=== PATIENT | male | born 1965 | race Caucasian/White ===

== ENCOUNTER 2016-11-09 13:55 | Emergency (ER) | payer OTHER ==
--- NOTE | 2016-11-09 15:01 | EDPHY ---
H & P Time Seen by Provider: 11/09/16 15:01 HPI/ROS: CHIEF COMPLAINT: Severe depression HISTORY OF PRESENT ILLNESS: This 51-year-old man presents with worsening severe depression for the past several weeks. His brother of liver disease 3 years ago and has been having some intermittent severe depression since then. 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 He has intermittent suicidal ideation but no plan and states that I'm not even remotely going to hurt myself. Associated with poor sleep and some increased alcohol ingestion when he is off duty. Today a fellow yarn preparation supervisor came to talk about some of these calls that they had run and he started tearing up was brought to the ED by his co-worker. REVIEW OF SYSTEMS: Eye: no change in vision ENT: no sore throat Cardiac: no chest pain or syncope Pulmonary: no cough or SOB Abdomen: no vomiting, diarrhea, abdominal pain Musculoskeletal: no back pain Skin: no rash Neuro: no headache Constitutional: no fever : no urinary symptoms A comprehensive 10 point review of systems is otherwise negative aside from elements mentioned in the history of present illness. PAST MEDICAL HISTORY: Negative Social history: Occasional alcohol, no drugs, does own a shotgun. . General Appearance: Alert and conversant, cooperative. Eyes: No scleral icterus. ENT, Mouth: Normal mucous membranes. Respiratory: Normal respiratory effort, breath sounds equal, lungs are clear to auscultation. Cardiovascular: Regular rate and rhythm. Gastrointestinal: Abdomen is soft and non tender. Neurological: Alert and oriented x3. Normally conversant. Face symmetric, normal movement and sensation in all extremities. Skin: Warm and dry, no rashes. Musculoskeletal: No peripheral edema and no joint swelling. Psychiatric: Depressed affect, tearful, denies being acutely suicidal. Emergency Department course/MDM: Mental health evaluation requested for severe depression. The patient is here with a fellow fire apparatus sprinkler inspector who is sitting with him in the room. Does not appear to be acutely suicidal or imminent danger to self or qualify for 72hour mental health hold. 1850: Patient had evaluation by psych, and recommendation of executive talent acquisition consultant Psychiatry contracting engineer and psychiatrist Dr. Groves is that the patient be discharged with outpatient follow-up. Smoking Status: Never smoked Constitutional: Initial Vital Signs Temperature (C) 37.0 C 11/09/16 14:11 Heart Rate 102 H 11/09/16 14:11 Respiratory Rate 18 11/09/16 14:11 Blood Pressure 156/107 H 11/09/16 14:11 O2 Sat (%) 95 11/09/16 14:11 O2 Delivery Mode Room Air Allergies/Adverse Reactions: No Known Allergies Allergy (Unverified 06/29/11 01:45) Home Medications: Medication Instructions Recorded No Medications [NO HOME 1 ea [facility] [place] 06/29/11 MEDICATIONS] Medical Decision Making - Data Points Laboratory Results: Laboratory Results 11/09/16 14:33 11/09/16 14:33 11/09/16 11/09/16 14:42 14:33 WBC 11.43 H 10^3/uL (3.80-9.50) RBC 5.58 10^6/uL (4.40-6.38) Hgb 18.0 H g/dL (13.7-17.5) Hct 50.8 % (40.0-51.0) MCV 91.0 fL (81.5-99.8) MCH 32.3 pg (27.9-34.1) MCHC 35.4 g/dL (32.4-36.7) RDW 12.0 % (11.5-15.2) Plt Count 298 10^3/uL (150-400) MPV 9.8 fL (8.7-11.7) Neut % (Auto) 83.2 H % (39.3-74.2) Lymph % (Auto) 11.6 L % (15.0-45.0) Mason % (Auto) 4.5 % (4.5-13.0) Eos % (Auto) 0.1 L % (0.6-7.6) Baso % (Auto) 0.3 % (0.3-1.7) Nucleat RBC Rel Count 0.0 % (0.0-0.2) Absolute Neuts (auto) 9.49 H 10^3/uL (1.70-6.50) Absolute Lymphs (auto) 1.33 10^3/uL (1.00-3.00) Absolute Monos (auto) 0.52 10^3/uL (0.30-0.80) Absolute Eos (auto) 0.01 L 10^3/uL (0.03-0.40) Absolute Basos (auto) 0.04 10^3/uL (0.02-0.10) Absolute Nucleated RBC 0.00 10^3/uL (0-0.01) Immature Gran % 0.3 % (0.0-1.1) Immature Gran # 0.04 10^3/uL (0.00-0.10) Sodium 140 mEq/L (134-144) Potassium 4.4 mEq/L (3.5-5.2) Chloride 100 mEq/L (97-110) Carbon Dioxide 24 mEq/l (22-31) Anion Gap 16 mEq/L (8-16) BUN 18 mg/dL (7-23) Creatinine 0.9 mg/dL (0.7-1.3) Estimated GFR > 60 Glucose 137 H mg/dL (70-100) Calcium 9.9 mg/dL (8.5-10.4) Salicylates < 1.0 L mg/dL (2.0-20.0) Urine Opiates Screen NEGATIVE (NEGATIVE) Acetaminophen < 10 L mcg/mL (10.0-30.0) Urine Barbiturates NEGATIVE (NEGATIVE) Ur Phencyclidine Scrn NEGATIVE (NEGATIVE) Ur Amphetamine Screen NEGATIVE (NEGATIVE) U Benzodiazepines Scrn NEGATIVE (NEGATIVE) Urine Cocaine Screen NEGATIVE (NEGATIVE) U Marijuana (THC) Screen NEGATIVE (NEGATIVE) Ethyl Alcohol < 10 mg/dL (0-10) Departure - Departure Disposition: Home, Routine, Self-Care Clinical Impression: Severe major depression Condition: Good Instructions: Depression (ED) Referrals: IN STATE,. [Primary Care Provider] - As per Instructions Maddison Muñoz MD [Medical Doctor] - As per Instructions
[2016-11-09 15:27] LABS: % IMMATURE GRANULYOCYTES 0.3 % (0.0-1.1); ABSOLUTE IMMATURE GRANULOCYTES 0.04 10^3/uL (0.00-0.10); ADD DIFF? NO; ADD MORPH? NO; ADD SCAN? NO; ATYPICAL LYMPHOCYTE FLAG 0 (0-99); FRAGMENT RBC FLAG 0 (0-99); HEMATOCRIT 50.8 % (40.0-51.0); LEFT SHIFT FLG 10 (0-99); LIPEMIA HEMOLYSIS FLAG 90 (0-99); MEAN CELL HEMOGLOBIN 32.3 pg (27.9-34.1); MEAN CELL HEMOGLOBIN CONCENTR. 35.4 g/dL (32.4-36.7); MEAN PLATELET VOLUME 9.8 fL (8.7-11.7); PLATELET CLUMPS FLAG 0 (0-99); PLATELET COUNT 298 10^3/uL (150-400); RED BLOOD CELL COUNT 5.58 10^6/uL (4.40-6.38)
[2016-11-09 15:35] LABS: ANION GAP 16 mEq/L (8-16); CALCIUM 9.9 mg/dL (8.5-10.4); CARBON DIOXIDE 24 mEq/l (22-31); CHLORIDE 100 mEq/L (97-110); CREATININE 0.9 mg/dL (0.7-1.3); ETHANOL SERUM < 10 mg/dL (0-10); GLOMERULAR FILTRATION RATE > 60; GLUCOSE 137 mg/dL (70-100); POTASSIUM 4.4 mEq/L (3.5-5.2); SALICYLATE < 1.0 mg/dL (2.0-20.0); SODIUM 140 mEq/L (134-144)
[2016-11-09 18:58] VITALS: BP 121/93; PULSE 90; RESP 18; TEMP 97.7; O2SAT 98
== END 2016-11-09 18:58 | disposition home or self-care (01) ==
DX: F32.9 Major depressive disorder, single episode, unspecified (principal)
CPT/HCPCS: 80305; G0480